=== PATIENT | female | born 2000 | race Caucasian/White ===

== ENCOUNTER 2018-10-31 20:11 | Emergency (ER) | payer OTHER ==
[2018-11-01 00:05] LABS: URINE PH (Dip) POC 5.5 (5.0-8.5)
[2018-11-01 00:05] LABS: URINE BLOOD (Dip) POC Trace-intact (NEGATIVE); URINE GLUCOSE (Dip) POC Negative (NEGATIVE); URINE KETONES (Dip) POC 1+ (NEGATIVE); URINE LEUKOCYTE EST (Dip) POC Negative (NEGATIVE); URINE NITRITE (Dip) POC Negative (NEGATIVE); URINE TOTAL PROTEIN POC Negative (NEGATIVE)
[2018-11-01] MEDS: KETOROLAC 30 MG INJ IM (00:17)
== END 2018-11-01 01:14 | disposition home or self-care (01) ==
LOC: FTE 20:11
DX: R10.84 Generalized abdominal pain (principal)
CPT/HCPCS: 81003; 81025; 96372; 99284-25